=== PATIENT | male | born 1965 | race Caucasian/White ===

== ENCOUNTER 2019-12-04 18:44 | Inpatient (IN) | payer BC ==
--- NOTE | 2019-12-04 20:21 | ED ---
Extremity Problem HPI - General Chief complaint: Extremity Problem,Nontraumatic Stated complaint: Poss blood clot Time Seen by Provider: 12/04/19 18:50 Source: patient Mode of arrival: ambulatory Limitations: no limitations - History of Present Illness Initial comments: The patient is a 54-year-old male who presents to the emergency room in with reported cramping in the right upper extremitity. Patient is right-hand dominant. He states that it fell "tight" and stiff. He has been using it more than usual. He felt as if it was warm to the touch. Denies any redness. Does admit to swelling which has been chronic since the age of 20. At that time he did have a DVT from unknown reasons. States he is on Coumadin for a short period time. Has not been on anticoagulation. He denies any numbness, tingling or weakness. Headaches or visual changes. Denies any chest pain or shortness of breath. No lower extremity edema. No calf pain. There are no other alleviating, precipitating or modifying factors - Related Data Previous Rx's Medication Instructions Recorded Apixaban [Eliquis Starter Pack 0 mg PO DIRECTED 30 Days #1 pack 12/05/19 (for VTE)] Apixaban [Eliquis] 5 mg PO BID #60 tab 12/05/19 Cephalexin [Keflex] 500 mg PO TID 4 Days #12 cap 12/06/19 Allergies Allergy/AdvReac Type Severity Reaction Status Date / Time No Known Allergies Allergy Verified 12/04/19 21:48 Review of Systems ROS Statement: Those systems with pertinent positive or pertinent negative responses have been documented in the HPI. ROS Other: All systems not noted in ROS Statement are negative. Past Medical History Past Medical History: Cancer, Skin Disorder, Sleep Apnea/CPAP/BIPAP Additional Past Medical History / Comment(s): CPAP, Melanoma-back, Blood clot- right arm, History of Any Multi-Drug Resistant Organisms: None Reported Past Surgical History: Orthopedic Surgery Additional Past Surgical History / Comment(s): Right middle digit reattached Past Anesthesia/Blood Transfusion Reactions: No Reported Reaction Past Psychological History: No Psychological Hx Reported Smoking Status: Never smoker Past Alcohol Use History: Occasional Past Drug Use History: None Reported - Past Family History Father Family Medical History: Cancer Additional Family Medical History / Comment(s): bladder General Exam Limitations: no limitations General appearance: alert, in no apparent distress Head exam: Present: atraumatic, normocephalic, normal inspection Eye exam: Present: normal appearance, PERRL, EOMI. Absent: scleral icterus, conjunctival injection, periorbital swelling ENT exam: Present: normal exam, mucous membranes moist Neck exam: Present: normal inspection. Absent: tenderness, meningismus, lymphadenopathy Respiratory exam: Present: normal lung sounds bilaterally. Absent: respiratory distress, wheezes, rales, rhonchi, stridor Cardiovascular Exam: Present: regular rate, normal rhythm, normal heart sounds. Absent: systolic murmur, diastolic murmur, rubs, gallop, clicks GI/Abdominal exam: Present: soft, normal bowel sounds. Absent: distended, tenderness, guarding, rebound, rigid Extremities exam: Present: tenderness, normal capillary refill, other (swelling entire right upper extremity. tenderness to the bicep region. 2+ radial and ulnar pusles. Intact sensation in the median, radial and ulnar distribution). Absent: pedal edema, joint swelling, calf tenderness Back exam: Present: normal inspection Neurological exam: Present: alert, oriented X3, CN II-XII intact Psychiatric exam: Present: normal affect, normal mood Skin exam: Present: warm, dry, intact, normal color. Absent: rash Course Vital Signs 12/04/19 12/04/19 18:47 21:41 Temperature 98.2 F Pulse Rate 72 61 Respiratory 18 18 Rate Blood Pressure 184/78 134/58 O2 Sat by Pulse 98 97 Oximetry Medical Decision Making - Medical Decision Making Upon arrival the patient is placed into room 28. A thorough history and physical exam is performed. Ultrasound of the right upper extremity is performed which demonstrates DVT in the subclavian, axillary, basilic and mid for brachial veins. Discuss case with Dr. Ramos and he does verify that these are acute DVTs. Because of this laboratory studies were ordered. I also did perform a CT the patient's chest chest x-ray. No signs of pulmonary embolism. The patient is placed on a heparin drip. Discussed the case with Dr. Duval who accepted admission for the patient. I will place hematology on consult. Patient remained in stable condition and was transferred to the floor - Lab Data Result diagrams: 12/06/19 06:52 12/04/19 21:45 Lab Results 12/04/19 12/04/19 12/04/19 Range/Units 21:33 21:45 21:45 WBC 9.2 (3.8-10.6) k/uL RBC 4.57 (4.30-5.90) m/uL Hgb 14.4 (13.0-17.5) gm/dL Hct 42.1 (39.0-53.0) % MCV 92.1 (80.0-100.0) fL MCH 31.6 (25.0-35.0) pg MCHC 34.3 (31.0-37.0) g/dL RDW 12.2 (11.5-15.5) % Plt Count 204 (150-450) k/uL Neutrophils % 64 % Lymphocytes % 22 % Monocytes % 7 % Eosinophils % 4 % Basophils % 1 % Neutrophils # 5.9 (1.3-7.7) k/uL Lymphocytes # 2.1 (1.0-4.8) k/uL Monocytes # 0.6 (0-1.0) k/uL Eosinophils # 0.4 (0-0.7) k/uL Basophils # 0.1 (0-0.2) k/uL PT 9.8 (9.0-12.0) sec INR 0.9 (<1.2) APTT 24.4 (22.0-30.0) sec Sodium (137-145) mmol/L Potassium (3.5-5.1) mmol/L Chloride (98-107) mmol/L Carbon Dioxide (22-30) mmol/L Anion Gap mmol/L BUN (9-20) mg/dL Creatinine (0.66-1.25) mg/dL Est GFR (CKD-EPI)AfAm (>60 ml/min/1.73 sqM) Est GFR (CKD-EPI)NonAf (>60 ml/min/1.73 sqM) Glucose (74-99) mg/dL Calcium (8.4-10.2) mg/dL Total Bilirubin (0.2-1.3) mg/dL AST (17-59) U/L ALT (4-49) U/L Alkaline Phosphatase (38-126) U/L Total Protein (6.3-8.2) g/dL Albumin (3.5-5.0) g/dL Coronavirus (PCR) Not Detected (Not Detected) 12/04/19 Range/Units 21:45 WBC (3.8-10.6) k/uL RBC (4.30-5.90) m/uL Hgb (13.0-17.5) gm/dL Hct (39.0-53.0) % MCV (80.0-100.0) fL MCH (25.0-35.0) pg MCHC (31.0-37.0) g/dL RDW (11.5-15.5) % Plt Count (150-450) k/uL Neutrophils % % Lymphocytes % % Monocytes % % Eosinophils % % Basophils % % Neutrophils # (1.3-7.7) k/uL Lymphocytes # (1.0-4.8) k/uL Monocytes # (0-1.0) k/uL Eosinophils # (0-0.7) k/uL Basophils # (0-0.2) k/uL PT (9.0-12.0) sec INR (<1.2) APTT (22.0-30.0) sec Sodium 137 (137-145) mmol/L Potassium 4.1 (3.5-5.1) mmol/L Chloride 103 (98-107) mmol/L Carbon Dioxide 25 (22-30) mmol/L Anion Gap 9 mmol/L BUN 15 (9-20) mg/dL Creatinine 0.91 (0.66-1.25) mg/dL Est GFR (CKD-EPI)AfAm >90 (>60 ml/min/1.73 sqM) Est GFR (CKD-EPI)NonAf >90 (>60 ml/min/1.73 sqM) Glucose 113 H (74-99) mg/dL Calcium 8.8 (8.4-10.2) mg/dL Total Bilirubin 0.4 (0.2-1.3) mg/dL AST 29 (17-59) U/L ALT 17 (4-49) U/L Alkaline Phosphatase 73 (38-126) U/L Total Protein 6.8 (6.3-8.2) g/dL Albumin 4.0 (3.5-5.0) g/dL Coronavirus (PCR) (Not Detected) Critical Care Time Critical Care Time: Yes (33 minutes) Disposition Clinical Impression: Deep vein thrombosis of right upper extremity Disposition: ADMITTED IP TO THIS [facility] Condition: Stable Is patient prescribed a controlled substance at d/c from ED?: No Decision to Admit Reason: Admit from EC Decision Date: 12/04/19 Decision Time: 22:49
--- NOTE | 2019-12-04 20:34 | US ---
EXAMINATION TYPE: US venous doppler duplex UE RT DATE OF EXAM: 12/04/2019 COMPARISON: NONE CLINICAL HISTORY: arm cramp, hx DVT. Right arm cramp x 4 days. Hx of DVT. Patient does not take blood thinners. SIDE PERFORMED: Right Right Arm: There appear to be internal echoes within the right subclavian, axillary, basilic, and mid -lower brachial veins. These vessels do not appear to compress. Difficult to distinguish upper brachi al veins due to additional vessels in the area. No evidence of DVT within right cephalic, radial, and ulnar veins. IMPRESSION: 1. Deep venous thrombosis right upper extremity.
[2019-12-04] MEDS ORDERED: HEPARIN SODIUM,PORCINE 5,000 UNIT/ML 1 ML VIAL IV PRN (21:16)
[2019-12-04] MEDS ORDERED: HEPARIN SODIUM,PORCINE 10,000 UNIT/ML 1 ML VIAL IV ONE (21:16)
[2019-12-04 21:51] LABS: Basophils # (A) 0.1 k/uL (0-0.2); Basophils % (A) 1 %; Eosinophils # (A) 0.4 k/uL (0-0.7); Eosinophils % (A) 4 %; HCT 42.1 % (39.0-53.0); HGB 14.4 gm/dL (13.0-17.5); Lymphocytes # (A) 2.1 k/uL (1.0-4.8); Lymphocytes % (A) 22 %; MCH 31.6 pg (25.0-35.0); MCHC 34.3 g/dL (31.0-37.0); MCV 92.1 fL (80.0-100.0); Mean Platelet Volume 7.9; Monocytes # (A) 0.6 k/uL (0-1.0); Monocytes % (A) 7 %; Neutrophils # (A) 5.9 k/uL (1.3-7.7); Neutrophils % (A) 64 %; Platelet Count 204 k/uL (150-450); RBC 4.57 m/uL (4.30-5.90); RDW 12.2 % (11.5-15.5); WBC 9.2 k/uL (3.8-10.6)
[2019-12-04 21:59] LABS: ALT 17 U/L (4-49); AST 29 U/L (17-59); African American GFR (CKD) >90 (>60 ml/min/1.73 sqM); Alkaline Phosphatase 73 U/L (38-126); Anion Gap 9 mmol/L; Blood Urea Nitrogen 15 mg/dL (9-20); Calcium 8.8 mg/dL (8.4-10.2); Carbon Dioxide 25 mmol/L (22-30); Chloride 103 mmol/L (98-107); Glucose 113 mg/dL (74-99); Non-African American GFR(CKD) >90 (>60 ml/min/1.73 sqM); Potassium 4.1 mmol/L (3.5-5.1); Sodium 137 mmol/L (137-145); Total Bilirubin 0.4 mg/dL (0.2-1.3); Total Protein 6.8 g/dL (6.3-8.2)
[2019-12-04 22:00] LABS: INR 0.9 (<1.2); Partial Thromboplastin Time 24.4 sec (22.0-30.0); Prothrombin Time 9.8 sec (9.0-12.0)
--- NOTE | 2019-12-04 22:17 | XR ---
EXAMINATION TYPE: XR chest 2V DATE OF EXAM: 12/04/2019 COMPARISON: None INDICATION: Cough, pain TECHNIQUE: Frontal and lateral views of the chest are obtained. FINDINGS: The heart size is normal. The pulmonary vasculature is normal. Subtle linear opacities in the right midlung. Correlate for some mild atelectasis. Mild increased ángel tral lung markings are present. IMPRESSION: 1. Suggestion of subsegmental atelectasis bilateral lung bases with some plate like atelectasis right midlung.
--- NOTE | 2019-12-04 22:26 | CT ---
EXAMINATION TYPE: CT chest angio for PE DATE OF EXAM: 12/04/2019 COMPARISON: None HISTORY: right arm swelling, hx of PE CT DLP: 1138.4 mGycm Automated exposure control for dose reduction was used. CONTRAST: Performed with IV Contrast, patient injected with 96cc mL of Isovue 370. There are 3-D post processed images. The lungs are clear of consolidation. There is no evidence of a pulmonary mass. There is no pleural e ffusion. There is no pericardial effusion. Heart size is fairly normal. There are no hilar masses. There is no mediastinal adenopathy. Thoracic aorta shows no evidence of an eurysm or dissection. There is normal contrast opacification of the pulmonary arteries. I see no filling defect. There is s ome spurring in the thoracic spine. There is no compression fracture. Bony thorax is intact. IMPRESSION: Negative exam. No evidence of pulmonary embolism. No evidence of cardiopulmonary disease.
[2019-12-04] MEDS: HEPARIN SOD,PORK IN 0.45% NACL 25,000 UNIT in 0.45% NACL 1 250ML.BAG IV SCH (22:29)
[2019-12-04] MEDS ORDERED: NALOXONE 0.4 MG/ML 1 ML VIAL IV PRN (22:49)
[2019-12-05 03:47] LABS: Basophils # (A) 0.1 k/uL (0-0.2); Basophils % (A) 1 %; Eosinophils # (A) 0.4 k/uL (0-0.7); Eosinophils % (A) 4 %; HGB 13.5 gm/dL (13.0-17.5); Lymphocytes # (A) 2.7 k/uL (1.0-4.8); Lymphocytes % (A) 30 %; MCH 29.8 pg (25.0-35.0); MCHC 32.1 g/dL (31.0-37.0); MCV 92.9 fL (80.0-100.0); Mean Platelet Volume 7.7; Monocytes # (A) 0.7 k/uL (0-1.0); Monocytes % (A) 7 %; Neutrophils % (A) 56 %; Platelet Count 179 k/uL (150-450); RBC 4.53 m/uL (4.30-5.90); RDW 12.3 % (11.5-15.5)
[2019-12-05 03:58] LABS: Partial Thromboplastin Time 67.9 sec (22.0-30.0); Prothrombin Time 10.3 sec (9.0-12.0)
[2019-12-05] MEDS ORDERED: HEPARIN SODIUM,PORCINE 5,000 UNIT/ML 1 ML VIAL IV STA (10:11)
[2019-12-05] MEDS: HEPARIN SOD,PORK IN 0.45% NACL 25,000 UNIT in 0.45% NACL 1 250ML.BAG IV SCH ×2 (10:44→20:29)
--- NOTE | 2019-12-05 10:55 | P.HPIM ---
History of Present Illness H&P Date: 12/05/19 Chief Complaint: right arm swelling patient is a 54-year-old male with a known history of obstructive sleep apnea on CPAP at home, history of right upper extremity DVT at age 20 status post three- month Coumadin use at the time, melanoma stage IIon the back status post resect ion and sentinel lymph node biopsy in the right axilla, morbid obesity and osteoarthritis presents to ER with complaints of right upper extremity swelling and pain. During the weekend patient was using his arm more than usual, chopping wood and also painting. Patient does get right upper swelling usually with more than usual work with right handbut resolves by the next day. This time even after today's swelling was not coming down and at the same time it felt like tightness which made him to come to ER. no commerce of chest pain or shortness of breath. No fever no chills. No headache or dizziness or lightheadedness. No nausea vomiting abdominal pain or diarrhea. No recent illnesses. No sick contacts. Denied any leg swelling. CT angiogram of the chest showed no evidence of pulmonary embolism. Right upper activity duplex scan showed DVT in the right upper extremity Chest x-ray showed elevation of subsegmental atelectasis bilateral lung bases with some platelike atelectasis right mid lung. Laboratory data reviewed. Review of Systems Constitutional: Patient denies any fever or chills . No generalized weakness or weight loss. Abdomen: Patient denied nausea vomiting and diarrhea and abdominal pain. Cardiovascular: Patient denies any chest pain or short of breath no palpitations. Respiratory: patient denied any cough is from production. No shortness of breath Neurologic: Patient denied any numbness or tingling headache. Musculoskeletal: Patient denies any complaints of joint swelling or deformity.right arm swelling Skin: Negative Psychiatric: Negative Endocrine: No heat or cold intolerance. No recent weight gain. Genitourinary: No dysuria or hematuria. All other 14 point ROS negative except the above Past Medical History Past Medical History: Cancer, Skin Disorder, Sleep Apnea/CPAP/BIPAP Additional Past Medical History / Comment(s): CPAP, Melanoma-back, Blood clot- right arm, History of Any Multi-Drug Resistant Organisms: None Reported Past Surgical History: Orthopedic Surgery Additional Past Surgical History / Comment(s): Right middle digit reattached Past Anesthesia/Blood Transfusion Reactions: No Reported Reaction Past Psychological History: No Psychological Hx Reported Smoking Status: Never smoker Past Alcohol Use History: Occasional Past Drug Use History: None Reported - Past Family History Father Family Medical History: Cancer Additional Family Medical History / Comment(s): bladder Medications and Allergies Home Medications Medication Instructions Recorded Confirmed Type No Known Home Medications 12/12/14 12/04/19 History Allergies Allergy/AdvReac Type Severity Reaction Status Date / Time No Known Allergies Allergy Verified 12/04/19 21:48 Physical Exam Vitals: Vital Signs Temp Pulse Pulse Resp BP BP BP 12/05/19 05:02 98.5 F 54 L 16 118/61 12/04/19 23:38 99.2 F 60 18 142/97 12/04/19 23:20 61 17 154/68 12/04/19 21:41 61 18 134/58 12/04/19 18:47 98.2 F 72 18 184/78 Pulse Ox 12/05/19 05:02 97 12/04/19 23:38 96 12/04/19 23:20 98 12/04/19 21:41 97 12/04/19 18:47 98 Intake and Output 12/04/19 12/05/19 12/05/19 22:59 06:59 14:59 Intake Total 716.688 123.312 Balance 716.688 123.312 Intake: Intake, IV Titration 126.688 123.312 Amount Heparin Sod,Pork in 0.45% 126.688 123.312 NaCl 25,000 unit In 0.45 % NaCl 1 250ml.bag @ 14 UNITS/KG/HR 22.226 mls/hr IV .[id number] [facility] Rx#: [id number] Oral 590 Other: Voiding Method Toilet # Voids 2 Weight 158.757 kg 158.757 kg PHYSICAL EXAMINATION: Patient is lying in the bed comfortably, no acute distress, awake alert and oriented.. HEENT: Normocephalic. Neck is supple. Pupils reactive. Nostrils clear. Oral cavity is moist. Ears reveal no drainage. Neck reveals no JVD, carotid bruits, or thyromegaly. CHEST EXAMINATION: Trachea is central. Symmetrical expansion. Lung hammond clear to auscultation and percussion. CARDIAC: Normal S1, S2 with no gallops. No murmurs ABDOMEN: Soft. Bowel sounds normal. No organomegaly. No abdominal bruits. Extremities: reveal no edema. No clubbing or cyanosis. Right upper activity swelling about the elbow up to shoulder with tenderness noted on the medial side. Neurologically awake, alert, oriented x3 with well-coordinated movements. No focal deficits noted Skin: No rash or skin lesions. Psychiatric: Coperative. Nonsuicidal Musculoskeletal: No joint swelling or deformity. Normal range of motion. Results CBC & Chem 7: 12/05/19 03:20 12/04/19 21:45 Labs: Abnormal Lab Results - Last 24 Hours (Table) 12/04/19 12/05/19 12/05/19 Range/Units 21:45 03:20 09:46 APTT 67.9 H 41.6 H (22.0-30.0) sec Glucose 113 H (74-99) mg/dL Thrombosis Risk Factor Assmnt - DVT/VTE Prophylaxis DVT/VTE Prophylaxis: Pharmacologic Prophylaxis ordered - Choose All That Apply Each Factor Represents 1 point: Age 41-60 years, Obesity (BMI >25), Swollen legs (current) Each Risk Factor Represents 3 Points: History of DVT/PE Other congenital or acquired thrombophilia - If yes, enter type in comment: No Thrombosis Risk Factor Assessment Total Risk Factor Score: 6 Thrombosis Risk Factor Assessment Level: High Risk Assessment and Plan Assessment: acuteright upper extremity DVT Previous history of DVT at age 20 status post Coumadin use for 3 months History of melanoma status post resection and right axilla sentinel node biopsy8 years ago. Obstructive sleep apnea on CPAP at home osteoarthritis Morbid obesity with BMI 47.5 DVT prophylaxis patient is already on heparin drip. Plan: Patient will be continued on high intensity heparin drip until the arm swelling improves. Hand elevation and pain management. CT angiogram is negative for any Anthony embolism. Hematology was consulted due to prior history of DVT and workup for hypercoagulability. Continue with CPAP at night. Further recommendations based on the clinical course. Time with Patient: Greater than 30
[2019-12-05] MEDS ORDERED: HYDROcodone/APAP 5-325MG 1 EACH TAB PO PRN (14:57)
[2019-12-05] MEDS ORDERED: ACETAMINOPHEN TAB 500 MG TAB PO PRN (14:57)
--- NOTE | 2019-12-05 15:16 | P.CONS ---
History of Present Illness - Reason for Consult Consult date: 12/05/19 DVT RUE Requesting physician: Linnette Duval - Chief Complaint RUE Pain, color changes and swelling - History of Present Illness Mr. Cagle is a pleasant male patient who is morbidly obese with history of Invasive stage 2 melanoma (8 years ago) with SLN excisional biopsies right axilla removed (negative for spread). Diabetes, and remote RUE DVT (Greater than 30 years ago. He presents to [facility] for increased pain and swelling in RUE. He states when he initially has his first thrombus at the age of 20 all he can remember is he was bowling prior, and at that time was treated with Heparin drip and warfarin 3 months. He never has had a hypercoagulable work-up. Approx 8 years ago he had melanoma T2 removed from back, no positive SLN although he did have 1-3 removed from right axilla and since this time has had chronic swelling. He states he may have been more active the past couple weeks since coming out of quarantine, but denies any direct traumatic correlation. This am he was taking shower and stated his RUE was changed in color, blueish. On his rforearm he does has some redness, and an area of what was some type of insect bite (unknown type). With the warmth, redness, and history we have started keflex for a secondary skin infection. RUE doppler revealed DVT which is acute. Heparin drip was initiated and Vascular surgery to consult. Review of Systems A 14 point review of systems assessed and completed and all negative except HPI Past Medical History Past Medical History: Cancer, Skin Disorder, Sleep Apnea/CPAP/BIPAP Additional Past Medical History / Comment(s): CPAP, Melanoma-back, Blood clot- right arm, History of Any Multi-Drug Resistant Organisms: None Reported Past Surgical History: Orthopedic Surgery Additional Past Surgical History / Comment(s): Right middle digit reattached Past Anesthesia/Blood Transfusion Reactions: No Reported Reaction Past Psychological History: No Psychological Hx Reported Smoking Status: Never smoker Past Alcohol Use History: Occasional Past Drug Use History: None Reported - Past Family History Father Family Medical History: Cancer Additional Family Medical History / Comment(s): bladder Medications and Allergies Home Medications Medication Instructions Recorded Confirmed Type Apixaban [Eliquis Starter Pack 0 mg PO DIRECTED 30 Days #1 pack 12/05/19 Rx (for VTE)] Apixaban [Eliquis] 5 mg PO BID #60 tab 12/05/19 Rx Allergies Allergy/AdvReac Type Severity Reaction Status Date / Time No Known Allergies Allergy Verified 12/04/19 21:48 Physical Exam Vitals: Vital Signs Temp Pulse Pulse Resp BP BP BP 12/05/19 12:14 98.2 F 71 20 103/56 12/05/19 05:02 98.5 F 54 L 16 118/61 12/04/19 23:38 99.2 F 60 18 142/97 12/04/19 23:20 61 17 154/68 12/04/19 21:41 61 18 134/58 12/04/19 18:47 98.2 F 72 18 184/78 Pulse Ox 12/05/19 12:14 98 12/05/19 05:02 97 12/04/19 23:38 96 12/04/19 23:20 98 12/04/19 21:41 97 12/04/19 18:47 98 Intake and Output 12/04/19 12/05/19 12/05/19 22:59 06:59 14:59 Intake Total 716.688 123.312 Balance 716.688 123.312 Intake: Intake, IV Titration 126.688 123.312 Amount Heparin Sod,Pork in 0.45% 126.688 123.312 NaCl 25,000 unit In 0.45 % NaCl 1 250ml.bag @ 14 UNITS/KG/HR 22.226 mls/hr IV .[id number] [facility] Rx#: [id number] Oral 590 Other: Voiding Method Toilet # Voids 2 Weight 158.757 kg 158.757 kg - Constitutional General appearance: cooperative, morbidly obese, no acute distress - EENT Eyes: EOMI, PERRLA, dentition normal ENT: NA/AT, normal oropharynx - Neck no palpable adenopathy Neck: normal ROM - Respiratory Respiratory: bilateral: CTA (no increased effort) - Cardiovascular Rhythm: regular Heart sounds: normal: S1, S2 foot Peripheral Edema: bilateral: Trace (RUE Edema, Erythema inner aspect. pinpoint scab from prior bite) - Gastrointestinal General gastrointestinal: normal bowel sounds, soft - Integumentary Integumentary: normal - Neurologic Neurologic: CNII-XII intact - Musculoskeletal Musculoskeletal: gait normal, generalized weakness, right sided weakness - Psychiatric Psychiatric: A&O x's 3, appropriate affect, intact judgment & insight Results CBC & Chem 7: 12/05/19 03:20 12/04/19 21:45 Labs: Abnormal Lab Results - Last 24 Hours (Table) 12/04/19 12/05/19 12/05/19 Range/Units 21:45 03:20 09:46 APTT 67.9 H 41.6 H (22.0-30.0) sec Glucose 113 H (74-99) mg/dL CT scan - chest: report reviewed Venous US: report reviewed Assessment and Plan (1) Deep vein thrombosis of right upper extremity Current Visit: Yes Status: Acute Code(s): I82.621 - ACUTE EMBOLISM AND THROMBOSIS OF DEEP VEINS OF R UP EXTREM SNOMED Code(s): 114707325 Plan: Assessment and Recommendations: RUE DVT: Acute - This would be considered unprovoked all though increased risk factors secondary to chronic lymphedema in this arm, morbid obesity, as well as, Di abetes. - Since this is second lifelong thrombolic event the guidelines would show to recommend lifelong anticoagulation, although he is very hesitant about this. He has agreed to come in to office for follow-up and hypercoaguable work-up in 6 weeks, and will also rescan doppler in 6 months to reassess if thrombus still present. Will defer final length of therapy to Dr. Magdaleno at that time. - CTA negative for PE - BLE Doppler pending - PLan to switch from heparin drip to eliquis as there is the most data for safety in patients with BMI over 40. (Leon) Chronic Lymphedema in RUE: - Education regarding chronic lymphedema and appropriate management. He does travel often in a plane and has never worn a sleeve in past. We discussed re- measurement and PT/OT referral at the 6 week follow-up for this. Erythema and likely secondary cellulitis to RUE: - There is a small scab/erythema and warm to touch Thank you for allowing us to participate in the care of your patient we will follow along with you.
--- NOTE | 2019-12-05 15:41 | US ---
EXAMINATION TYPE: US venous doppler duplex LE BI DATE OF EXAM: 12/05/2019 2:10 PM COMPARISON: None CLINICAL HISTORY: 54-year-old male. Hypercoagulable SIDE PERFORMED: Bilateral TECHNIQUE: The lower extremity deep venous system is examined utilizing real time linear array sonog hoda with graded compression, doppler sonography and color-flow sonography. FINDINGS: VESSELS IMAGED: External Iliac Vein (EIV) Common Femoral Vein Deep Femoral Vein Greater Saphenous Vein * Femoral Vein Popliteal Vein Small Saphenous Vein * Proximal Calf Veins (* superficial vessels) Right Leg: Negative for DVT Left Leg: Negative for DVT IMPRESSION: No evidence for DVT within the bilateral lower extremities imaged from the groin to the upper calves.
[2019-12-05] MEDS: CEPHALEXIN 500 MG CAP PO SCH ×2 (16:47→22:04)
[2019-12-05 17:45] LABS: LDH 424 U/L (313-618)
[2019-12-06 02:56] LABS: Rheumatoid Factor, Qnt <4 IU/mL (0-15)
[2019-12-06 07:35] LABS: Basophils # (A) 0.1 k/uL (0-0.2); Basophils % (A) 1 %; Eosinophils # (A) 0.3 k/uL (0-0.7); Eosinophils % (A) 5 %; HCT 41.9 % (39.0-53.0); HGB 13.9 gm/dL (13.0-17.5); Lymphocytes # (A) 1.4 k/uL (1.0-4.8); Lymphocytes % (A) 21 %; MCH 31.2 pg (25.0-35.0); MCHC 33.2 g/dL (31.0-37.0); MCV 93.8 fL (80.0-100.0); Mean Platelet Volume 7.7; Monocytes # (A) 0.5 k/uL (0-1.0); Monocytes % (A) 8 %; Neutrophils # (A) 4.2 k/uL (1.3-7.7); Neutrophils % (A) 64 %; Platelet Count 200 k/uL (150-450); RBC 4.47 m/uL (4.30-5.90); RDW 12.3 % (11.5-15.5); WBC 6.6 k/uL (3.8-10.6)
[2019-12-06 07:36] LABS: Partial Thromboplastin Time 49.4 sec (22.0-30.0); Prothrombin Time 10.4 sec (9.0-12.0)
[2019-12-06] MEDS: CEPHALEXIN 500 MG CAP PO SCH (08:45)
[2019-12-06] MEDS: HEPARIN SOD,PORK IN 0.45% NACL 25,000 UNIT in 0.45% NACL 1 250ML.BAG IV SCH (08:59)
[2019-12-06] MEDS ORDERED: APIXABAN 5 MG TAB PO SCH (11:45)
[2019-12-06 12:21] VITALS: BP 106/72; PULSE 52; RESP 18; TEMP 98.8
--- NOTE | 2019-12-06 13:43 | P.GSCN ---
History of Present Illness Consult date: 12/06/19 Reason for Consult: Upper extremity DVT, non-provoked. History of present illness: The patient is a pleasant 54-year-old male with a past medical history that includes obesity, obstructive sleep apnea on CPAP, melanoma was sentinel a xillary normal lymph node removal, and a history of a right upper extremity DVT at age 20 for which he was on Coumadin for about 3 months. Patient presented to the emergency room after noticing that his right upper extremity was swollen, with redness, and slightly blue in color. He states his right upper extremity always has some lymphedema, however he felt this was different and was also becoming painful. The patient denies any injury to the right upper extremity, any family history or personal history of clotting disorders. He did state that he was chopping blood on Tuesday prior to the arm becoming swollen and sore. He states he is able to freely move his right upper extremity and fingers. The swelling and pain have decreased since his hospitalization. He denies any shortness of breath or chest pain. Right upper extremity venous Doppler on the. To be internal echoes within the right subclavian, axillary, basilic, and mid lower brachial veins. These vessels do not appear to compress. Difficult to distinguish upper brachial veins due to additional vessels in the area. No evidence of DVT within right cephalic, radial and ulnar veins. Acute deep venous thrombosis in the right upper extremity. Bilateral lower extremity venous Doppler negative for DVT. CTA chest negative for pulmonary embolism. Review of Systems Review of systems completed and all pertinent positives and negatives as stated in HPI. Past Medical History Past Medical History: Cancer, Skin Disorder, Sleep Apnea/CPAP/BIPAP Additional Past Medical History / Comment(s): CPAP, Melanoma-back, Blood clot-right arm, History of Any Multi-Drug Resistant Organisms: None Reported Past Surgical History: Orthopedic Surgery Additional Past Surgical History / Comment(s): Right middle digit reattached Past Anesthesia/Blood Transfusion Reactions: No Reported Reaction Past Psychological History: No Psychological Hx Reported Smoking Status: Never smoker Past Alcohol Use History: Occasional Past Drug Use History: None Reported - Past Family History Father Family Medical History: Cancer Additional Family Medical History / Comment(s): bladder Medications and Allergies Home Medications Medication Instructions Recorded Confirmed Type Apixaban [Eliquis Starter Pack 0 mg PO DIRECTED 30 Days #1 pack 12/05/19 Rx (for VTE)] Apixaban [Eliquis] 5 mg PO BID #60 tab 12/05/19 Rx Allergies Allergy/AdvReac Type Severity Reaction Status Date / Time No Known Allergies Allergy Verified 12/04/19 21:48 Surgical - Exam Vital Signs Temp Pulse Resp BP Pulse Ox 98.2 F 72 18 184/78 98 12/04/19 18:47 12/04/19 18:47 12/04/19 18:47 12/04/19 18:47 12/04/19 18:47 General appearance: The patient is alert, oriented, in no acute distress. HET: Head is normocephalic and atraumatic. Pupils are equal and reactive. Oropharynx is clear without lesions. Neck: Supple without lymphadenopathy. Trachea midline. No carotid bruit bilaterally. Heart: S1 S2. Regular rate and rhythm. Lungs: No crackles or wheezes are heard. Abdomen: Soft, nontender, nondistended with bowel sounds. No peritoneal signs. No palpable organomegaly or masses. Extremities: right upper extremity with swelling, redness to the palmar side of his right lower arm. Patient is able to freely move the right upper extremity and fingers. Palpable 2+ Bilateral arterial pulses. Neurological: No focal deficits. Strength and sensation are grossly intact. Results Right upper extremity venous Doppler: Reviewed Bilateral lower extremity venous Doppler: Reviewed CTA chest. Review - Labs 12/06/19 06:52 12/04/19 21:45 Abnormal Lab Results - Last 24 Hours (Table) 12/05/19 12/05/19 12/06/19 Range/Units 09:46 17:01 06:52 APTT 41.6 H 58.7 H 49.4 H (22.0-30.0) sec Assessment and Plan Assessment: 1. Right upper extremity deep venous thrombosis, unprovoked 2. Past history at age 20 of right upper extremity deep vein thrombosis treated with Coumadin for 3 months 3. Obesity 4. Melanoma, sentinel axillary lymph node removal 5. Sleep apnea with CPAP Plan: Agree with hematology to transition from heparin to Eliquis. Possibility that thoracic outlet syndrome could be causing the right upper extremity deep vein thrombosis, as patient had a previous DVT in the same upper extremity at age 20. Discussed with patient that we recommend he continues to follow-up with hematology for further workup. Discussed that there is no need for any vascular surgical intervention. In the likelihood in the future if this reoccurs or causes further pain or discomfort, recommend follow-up with a surgeon near his home in [place] who does thoracic outlet syndrome surgeries. Discussed with the patient that there is no need for follow-up with vascular surgery at this time. Will refer back to hematology for anticoagulation therapy. Patient may be discharged home per vascular surgery standpoint. Thank you for this consultation and allowing us to take part in the plan of care of your patient during his hospital stay. The above dictated assessment and findings were discussed with Dr. Watts. The impression and plan of care have been directed as dictated.
--- NOTE | 2019-12-06 16:14 | P.PN ---
Subjective Progress Note Date: 12/06/19 Principal diagnosis: Acute RUE DVT patient is doing better today, arm is still swollen and expectations for decreased swelling likely longer given his baseline lymphedema. He is concerned about his irregular heartbeat, he doesnt think he has ever had an echocardiogram. He will follow-up with primary this next couple weeks to discuss Objective - Vital Signs Vital signs: Vital Signs Temp 97.7 F 12/06/19 05:00 Pulse 58 L 12/06/19 05:58 Resp 16 12/06/19 05:00 BP 108/61 12/06/19 05:00 Pulse Ox 98 12/06/19 05:00 Intake & Output 12/05/19 12/06/19 12/06/19 18:59 06:59 18:59 Intake Total 089.308 3053.713 250 Balance 367.138 5403.713 250 Intake: Intake, IV Titration 286.303 53.713 250 Amount Heparin Sod,Pork in 0.45% 286.303 53.713 250 NaCl 25,000 unit In 0.45 % NaCl 1 250ml.bag @ 14 UNITS/KG/HR 22.226 mls/hr IV .[id number] MARTHA Rx#: [id number] Oral 1180 Other: Voiding Method Toilet Toilet Toilet # Voids 4 2 - Exam - Constitutional General appearance: cooperative, morbidly obese, no acute distress - EENT Eyes: EOMI, PERRLA, dentition normal ENT: NA/AT, normal oropharynx - Neck no palpable adenopathy Neck: normal ROM - Respiratory Respiratory: bilateral: CTA (no increased effort) - Cardiovascular Rhythm: regular Heart sounds: normal: S1, S2 foot Peripheral Edema: bilateral: Trace (RUE Edema, Erythema inner aspect. pinpoint scab from prior bite) - Gastrointestinal General gastrointestinal: normal bowel sounds, soft - Integumentary Integumentary: normal - Neurologic Neurologic: CNII-XII intact - Musculoskeletal Musculoskeletal: gait normal, generalized weakness, right sided weakness - Psychiatric Psychiatric: A&O x's 3, appropriate affect, intact judgment & insight - Labs CBC & Chem 7: 12/06/19 06:52 12/04/19 21:45 Labs: Abnormal Lab Results - Last 24 Hours (Table) 12/05/19 12/06/19 Range/Units 17:01 06:52 APTT 58.7 H 49.4 H (22.0-30.0) sec Assessment and Plan (1) Deep vein thrombosis of right upper extremity Status: Acute Code(s): I82.621 - ACUTE EMBOLISM AND THROMBOSIS OF DEEP VEINS OF R UP EXTREM SNOMED Code(s): 444556040 Plan: Assessment and Recommendations: RUE DVT: Acute - This would be considered unprovoked all though increased risk factors secondary to chronic lymphedema in this arm, morbid obesity, as well as, Diabetes. - Since this is second lifelong thrombolic event the guidelines would show to recommend lifelong anticoagulation, although he is very hesitant about this. He has agreed to come in to office for follow-up and hypercoaguable work-up in 6 weeks, and will also rescan doppler in 6 months to reassess if thrombus still present. Will defer final length of therapy to Dr. Magdaleno at that time. - CTA negative for PE - BLE Doppler pending - PLan to switch from heparin drip to eliquis as there is the most data for safety in patients with BMI over 40. (Leon) Chronic Lymphedema in RUE: - Education regarding chronic lymphedema and appropriate management. He does travel often in a plane and has never worn a sleeve in past. We discussed re- measurement and PT/OT referral at the 6 week follow-up for this. Erythema and likely secondary cellulitis to RUE: - There is a small scab/erythema and warm to touch Plan: - Await co-pay and coverage details on Eliquis and if able to receive plan for this at discharge - Await Dr. Camarillo Evaluation for need of intervention with ? vascular changes - Will eventually need to see lymphedema specialist, allow 4 weeks on Anticoagulation prior to referral - Complete Keflex of 10 days Ok for discharge from oncology standpoint
[2019-12-07 14:54] LABS: APTT >180 Sec(s) (<43); APTT 1:1 Mix 83 Sec(s) (<43); DRVVT 1:1 Mix 40 Sec(s) (<44); Dilute Russell Viper Venom 50 Sec(s) (<44); Hexagonal Phase Neutralization Positive (Negative)
== END 2019-12-06 16:06 | disposition home or self-care (01) | DRG 300 ==
LOC: EC 18:44 → 5NMEDONC 22:49
PROVIDERS: ADMIT Internal Medicine; ATTEND Internal Medicine
PROC: 5A09457 Assistance with Respiratory Ventilation, 24-96 Consecutive Hours, Continuous Positive Airway Pressure (ICD-10-PCS; principal; 2019-12-05)
DX: I82.621 Acute embolism and thrombosis of deep veins of right upper extremity (principal); J98.11 Atelectasis; Z68.42 Body mass index [BMI] 45.0-49.9, adult; L03.113 Cellulitis of right upper limb; I82.B11 Acute embolism and thrombosis of right subclavian vein; Z11.59 Encounter for screening for other viral diseases; E66.01 Morbid (severe) obesity due to excess calories; E11.9 Type 2 diabetes mellitus without complications; G47.33 Obstructive sleep apnea (adult) (pediatric); M19.90 Unspecified osteoarthritis, unspecified site; I89.0 Lymphedema, not elsewhere classified; I49.9 Cardiac arrhythmia, unspecified; W57.XXXA Bitten or stung by nonvenomous insect and other nonvenomous arthropods, initial encounter; Z85.820 Personal history of malignant melanoma of skin; Z98.890 Other specified postprocedural states; Z86.718 Personal history of other venous thrombosis and embolism; Z80.52 Family history of malignant neoplasm of bladder
CPT/HCPCS: 36415; 71046; 71275; 80053; 83615; 85025; 85598; 85610; 85613; 85730; 85732; 86038; 86431; 93970; 96365; 96376; 99285